=== PATIENT | female | born 1935 | race Caucasian/White ===

== ENCOUNTER 2018-09-19 16:01 | Emergency (ER) | payer MEDICARE, OTHER ==
[~2018-09-19] VITALS: Ht 165.1 cm; Wt 97.1 kg
[2018-09-19 16:13] VITALS: BP 127/56
[2018-09-19] MEDS ORDERED: cefTRIAXone SOD 1,000 MG VL IM ONE (19:00)
[2018-09-19] MEDS ORDERED: methylPREDNISolone SOD SUCC 125 MG/2 ML VL IM ONE (19:00)
== END 2018-09-19 20:03 | disposition home or self-care (01) ==
LOC: ER 16:13
DX: L23.3 Allergic contact dermatitis due to drugs in contact with skin (principal); T49.0X5A Adverse effect of local antifungal, anti-infective and anti-inflammatory drugs, initial encounter; Y92.89 Other specified places as the place of occurrence of the external cause
CPT/HCPCS: 96372; 99283; J0696; J2930

== ENCOUNTER 2019-08-31 10:54 | Emergency (ER) | payer MEDICARE, BC ==
[~2019-08-31] VITALS: Ht 165.1 cm; Wt 95.3 kg
[2019-08-31 11:49] VITALS: BP 110/71
== END 2019-08-31 12:50 | disposition home or self-care (01) ==
LOC: ER 10:54
DX: L03.112 Cellulitis of left axilla (principal); Z88.8 Allergy status to other drugs, medicaments and biological substances

== ENCOUNTER 2023-08-26 15:43 | Inpatient (IN) | payer BC, MEDICARE, OTHER ==
[~2023-08-26] VITALS: Ht 167.6 cm; Wt 72.3 kg
[2023-08-26 17:55] LABS: Basophils # (auto) 0 10 ^3/uL (0-0.2); Basophils % (auto) 0.3 % (0.0-2.0); Eosinophils # (auto) 0.1 10 ^3/uL (0-0.8); Eosinophils % (auto) 1.6 % (0.0-7.0); Hemoglobin 15.3 g/dL (12.2-16.2); Lymphocytes # (auto) 1.4 10 ^3/uL (0.4-5.4); Lymphocytes % (auto) 25.4 % (10.0-50.0); Mean Corpuscular Hemoglobin 30.1 pg (28.0-32.0); Mean Corpuscular Hgb Conc. 34.1 g/dL (32.0-36.0); Mean Corpuscular Volume 88.2 fL (80.0-100.0); Monocytes # (auto) 0.4 10 ^3/uL (0-1.3); Monocytes % (auto) 7.6 % (0.0-12.0); Neutrophils # (auto) 3.7 10 ^3/uL (1.6-8.6); Neutrophils % (auto) 65.1 % (37.0-80.0); Nucleated Red Blood Cells % 0.1 %; Red Blood Cells 5.11 10^6/uL (4.0-5.20); Red Cell Distribution Width 13.8 % (11.8-14.3); White Blood Cell 5.6 10^3/uL (4.4-10.8)
[2023-08-26 18:25] LABS: Alanine Aminotransferase 20 U/L (7-40); Alkaline Phosphatase 52 U/L (46-116); Anion Gap 11 (5-15); Aspartate Aminotransferase 19 U/L (13-40); Blood Urea Nitrogen 18 mg/dL (9-23); Calcium 10.1 mg/dL (8.5-10.1); Carbon Dioxide 22 mmol/L (20-30); Chloride 110 mmol/L (98-107); Glucose 100 mg/dL (74-106); Potassium 3.9 mmol/L (3.5-5.1); Sodium 143 mmol/L (136-145)
[2023-08-26 18:26] LABS: Albumin 4.7 g/dL (3.2-4.8); Bilirubin, Total 1.1 mg/dL (0.2-1.0); Total Protein 6.6 g/dL (5.7-8.2)
[2023-08-26 20:35] LABS: Urine Bacteria FEW /hpf (None Seen); Urine Blood 1+ /uL (Negative); Urine Clarity Turbid (Clear); Urine Color Yellow (Yellow); Urine Hyaline Cast MOD /lpf (0 - 2); Urine Mucus MODERATE (None Seen); Urine Protein, UAD TRACE (Negative); Urine Specific Gravity 1.025 (1.001-1.035); Urine Urobilinogen Normal (Negative); Urine WBC 26 /hpf (0 - 5); Urine pH 5.5 (5.0-9.0)
[2023-08-26 20:42] LABS: Amphetamine Screen, Urine Neg (NEGATIVE); Barbiturate Scree,Urine Neg (NEGATIVE); Benzodiazephine Screen, Urine Neg (NEGATIVE); Cannabinoid Screen, Urine Neg (NEGATIVE); Cocaine Screen, Urine Neg (NEGATIVE); Opiate Scree,Urine Neg (NEGATIVE); Phencyclidine Screen, Urine Neg (NEGATIVE)
[2023-08-26] MEDS ORDERED: ACETAMINOPHEN 325 MG TAB PO PRN (21:15)
[2023-08-26] MEDS: SODIUM CHLORIDE 0.9% 1,000 ML IV ONE ×2 (21:36→21:40)
[2023-08-26] MEDS: cefTRIAXone 1GM/50ML D5W 50 ML IV ONE (21:39)
[2023-08-26] MEDS: levoFLOXacin 500MG 100 ML IV ONE (22:40)
[2023-08-27] MEDS: LORazepam 2MG/ML-1ML VIAL IM PRN (06:40)
[2023-08-27] MEDS: LORazepam 2MG/ML-1ML VIAL IM ONE (06:45)
[2023-08-27 08:11] VITALS: PULSE 72; RESP 14; O2SAT 98
[2023-08-27] MEDS ORDERED: LEVO500T91 PO (16:40)
[2023-08-27] MEDS: levoFLOXacin 250MG 50 ML IV SCH (19:43)
[2023-08-27] MEDS ORDERED: levoFLOXacin 250MG 50 ML IV SCH (22:00)
[2023-08-27] MEDS: LORazepam 2MG/ML-1ML VIAL IV ONE (22:25)
[2023-08-28] VITALS (9 sets, daily range): BP systolic 117–146; BP diastolic 57–81; PULSE 66–90; RESP 16–20; TEMP 97.7–98.3; O2SAT 94–97
[2023-08-28] MEDS ORDERED: MEMA1TAB3 PO (03:19)
[2023-08-28] MEDS: LORazepam 2MG/ML-1ML VIAL IV PRN (12:34)
[2023-08-28] MEDS ORDERED: HALOPERIDOL LACTATE 5 MG/ML INJ VIAL IM PRN (22:30)
[2023-08-29 05:08] VITALS: BP 131/78; PULSE 72; RESP 16; TEMP 98.3; O2SAT 92
[2023-08-29 06:23] LABS: LDL Cholesterol 94 mg/dL (< 100); Triglycerides 64 mg/dL (< 150)
[2023-08-29 06:24] LABS: Cholesterol 163 mg/dL (< 200)
[2023-08-29 06:25] LABS: HDL Cholesterol 52 mg/dL (40-59)
[2023-08-29 08:00] VITALS: PULSE 70; RESP 17; O2SAT 96
[2023-08-29 09:02] VITALS: BP 146/77; PULSE 70; RESP 18; TEMP 98.8; O2SAT 95
[2023-08-29] MEDS: levoFLOXacin 500 MG TAB PO SCH (09:08)
[2023-08-29 13:34] VITALS: BP 125/79; PULSE 83; RESP 20; TEMP 98.6; O2SAT 95
[2023-08-29 16:29] VITALS: BP 123/81; PULSE 90; RESP 20; TEMP 98.7; O2SAT 97
[2023-08-29 17:07] VITALS: BP 130/80; PULSE 68; RESP 17; TEMP 98.1; O2SAT 97
[2023-08-29] MEDS ORDERED: MIRTAZAPINE 30 MG TAB PO SCH (22:00)
== END 2023-08-29 18:30 | disposition hospice, home (50) | DRG 690 ==
LOC: EDBD 15:43 → EDUNIT# 15:43 → ER 15:43 → TELE 21:11 → TELE-WESTW 08-27 23:00
PROVIDERS: ADMIT Internal Medicine; ATTEND Internal Medicine
DX: N39.0 Urinary tract infection, site not specified (principal); F29 Unspecified psychosis not due to a substance or known physiological condition; F03.90 Unspecified dementia, unspecified severity, without behavioral disturbance, psychotic disturbance, mood disturbance, and anxiety; Z88.8 Allergy status to other drugs, medicaments and biological substances; Z91.041 Radiographic dye allergy status; Z79.899 Other long term (current) drug therapy
CPT/HCPCS: 36415; 70450; 70551; 71045; 80053; 80061; 80307; 81001; 82140; 82607; 82962; 83605; 84443; 85025; 96365; 96366; 96368; 96372; G0378; J1956